=== PATIENT | female | born 1970 | race Caucasian/White ===

== ENCOUNTER → 2016-12-27 | Outpatient (CLI) | payer BC ==
[2016-12-27 16:10] LABS: CHLORIDE,CL 106 mmol/L (98-110); SODIUM,NA 142 mmol/L (136-146)
== END ==
LOC: MW.CHFP 15:01
PROVIDERS: ATTEND Nurse Practitioner Family
DX: R55 Syncope and collapse (principal); R53.83 Other fatigue
CPT/HCPCS: 36415; 80048; 82652; 85025; 93005

== ENCOUNTER 2021-12-17 09:09 | Emergency (ER) | payer BC ==
[2021-12-17] MEDS ORDERED: Ondansetron 4 MG/2 ML SDV IVPUSH ONE (09:22)
[2021-12-17] MEDS ORDERED: HYDROmorphone 1 MG/ML Syringe IVPUSH ONE (09:22)
[2021-12-17] MEDS ORDERED: Sodium Chloride 0.9% 1,000 ML IV ONE (09:22)
[2021-12-17 09:54] LABS: BLOOD UREA NITROGEN,BUN 15 mg/dL (7.0-18.0); CARBON DIOXIDE,CO2 28.5 mmol/L (21.0-32.0); CHLORIDE,CL 102 mmol/L (98-107); GLUCOSE RANDOM 109 mg/dL (74-106); LIPASE 102 U/L (73-393); POTASSIUM,K 4.2 mmol/L (3.5-5.1); SODIUM,NA 140 mmol/L (136-145)
[2021-12-17 11:58] VITALS: BP 117/73; PULSE 66
[2021-12-17] MEDS ORDERED: Iopamidol 755 MG/ML 500 ML Multipack Bottle IVPUSH STA (13:18)
== END 2021-12-17 11:58 | disposition home or self-care (01) ==
LOC: MW.ED 09:09
DX: K66.8 Other specified disorders of peritoneum (principal); Z88.5 Allergy status to narcotic agent; Z90.710 Acquired absence of both cervix and uterus
CPT/HCPCS: 36415; 74177; 80053; 81003; 83690; 85025; 96374; 96375; 99284; J1170; J2405; J7030; Q9967; 99283

== ENCOUNTER 2023-04-19 09:03 | Day surgery (SDC) | payer BC ==
[~2023-04-19 09:03] MED LIST: Bupivacaine 0.5% 30 ML SDV ONE; Lactated Ringers 1,000 ML IV SCH; Lidocaine 2% 100 MG/5 ML Syringe ONE; Lidocaine 2% 11 ML Jelly Filled Syringe ONE; Magnesium Sulfate (4.06 MEQ/ML) 5 GM/10 ML SDV ONE; Ondansetron 4 MG/2 ML SDV ONE; Rocuronium Bromide 50 MG/5 ML Syringe ONE; Sodium Chloride 0.9% 10 ML Syringe FLUSH PRN; Sodium Chloride 0.9% 2.5 ML Syringe FLUSH PRN; Sodium Chloride 0.9% 20 ML SDV IV PRN; Sugammadex Sodium 200 MG/2 ML VIAL ONE; ceFAZolin 2 GM in Sodium Chloride 0.9% 50 ML IV ONE; propofoL 50 ML ONE
[2023-04-19] MEDS ORDERED: Metoclopramide 10 MG/2 ML SDV IV ONE (09:04)
[2023-04-19] MEDS ORDERED: Ketorolac 30 MG/ML SDV IM ONE (09:04)
[2023-04-19] MEDS ORDERED: Dexmedetomidine 200 MCG/2 ML SDV IV ONE (09:04)
[2023-04-19] MEDS ORDERED: Scopolamine 1.5 MG Transdermal Patch ONE (09:11)
[2023-04-19] MEDS ORDERED: Bupivacaine 0.25% 30 ML SDV ONE (09:13)
[2023-04-19] MEDS ORDERED: Morphine 2 MG/ML SYRINGE IVPUSH PRN (09:26)
[2023-04-19] MEDS ORDERED: Naloxone 0.4 MG/ML SDV IVPUSH PRN (09:26)
[2023-04-19] MEDS ORDERED: fentaNYL 50 MCG/ML SDV IVPUSH PRN (09:26)
[2023-04-19] MEDS ORDERED: Metoclopramide 10 MG/2 ML SDV IVPUSH PRN (09:26)
[2023-04-19] MEDS ORDERED: Albuterol 0.083% 2.5 MG/3 ML Neb Soln NEB PRN (09:26)
[2023-04-19] MEDS ORDERED: Ondansetron 4 MG/2 ML SDV IVPUSH PRN (09:26)
[2023-04-19] MEDS ORDERED: HYDROmorphone 1 MG/ML Syringe IVPUSH PRN (09:26)
[2023-04-19] MEDS ORDERED: droPERidol 5 MG/2 ML SDV IVPUSH PRN (09:26)
[2023-04-19] MEDS ORDERED: fentaNYL 100 MCG/2 ML SDV ONE (09:35)
[2023-04-19] MEDS ORDERED: propofoL 50 ML ONE (09:37)
[2023-04-19] MEDS ORDERED: Esmolol 100 MG/10 ML SDV ONE (10:18)
[2023-04-19] MEDS ORDERED: ceFAZolin 1 GM Vial ONE ×2 (10:23)
[2023-04-19] MEDS ORDERED: Dexamethasone 4 MG/ML 5 ML MDV ONE (10:23)
[2023-04-19 12:23] VITALS: BP 107/67; PULSE 77
== END 2023-04-19 12:45 | disposition home or self-care (01) ==
LOC: MW.SDS 09:03
PROVIDERS: ATTEND Surgery
DX: K80.10 Calculus of gallbladder with chronic cholecystitis without obstruction (principal); K82.8 Other specified diseases of gallbladder; M19.90 Unspecified osteoarthritis, unspecified site; G43.009 Migraine without aura, not intractable, without status migrainosus; E11.42 Type 2 diabetes mellitus with diabetic polyneuropathy; Z88.5 Allergy status to narcotic agent; Z91.018 Allergy to other foods; Z79.85 Long-term (current) use of injectable non-insulin antidiabetic drugs; Z79.899 Other long term (current) drug therapy
CPT/HCPCS: 47562; 64488; 82947; A9270; J0690; J1100; J1885; J2704; J2765; J3010; J3475; J3490; J7030; J7120; 00790; J2405

== ENCOUNTER 2024-07-19 07:53 | Day surgery (SDC) | payer BC ==
[2024-07-19] MEDS: Lactated Ringers 1,000 ML IV SCH (08:30)
[2024-07-19] MEDS ORDERED: Propofol 200 MG/20 ML SDV ONE (09:18)
[2024-07-19] MEDS ORDERED: Lidocaine 2% 5 ML SDV ONE (09:19)
[2024-07-19 11:02] VITALS: BP 165/89; PULSE 63
== END 2024-07-19 10:55 | disposition home or self-care (01) ==
LOC: MW.SDS 07:53
PROVIDERS: ATTEND Surgery
DX: Z12.11 Encounter for screening for malignant neoplasm of colon (principal); E11.9 Type 2 diabetes mellitus without complications; E78.00 Pure hypercholesterolemia, unspecified; Z79.85 Long-term (current) use of injectable non-insulin antidiabetic drugs; Z79.899 Other long term (current) drug therapy; Z88.5 Allergy status to narcotic agent
CPT/HCPCS: 45378; J2704; J7120; J3490